=== PATIENT | male | born 1990 | race African-American/Black ===

== ENCOUNTER 2016-07-17 10:37 | Emergency (ER) | payer OTHER ==
[~2016-07-17] VITALS: Ht 182.9 cm; Wt 105.2 kg
[2016-07-17 11:55] LABS: Basophils # (auto) 0 uL; Basophils % (auto) 0.8 % (0.0-2.0); DEFINITIVE VIEW TRANSMISSION; Eosinophils # (auto) 0.4 uL; Eosinophils % (auto) 7.4 % (0.0-7.0); Hematocrit 49.7 % (41.0-53.0); Hemoglobin 15.6 g/dL (13.5-17.5); Lymphocytes # (auto) 2.1 uL; Lymphocytes % (auto) 44.1 % (10.0-50.0); Mean Corpuscular Hemoglobin 25.1 pg (28.0-32.0); Mean Corpuscular Hgb Conc. 31.4 g/dL (32.0-36.0); Mean Corpuscular Volume 79.9 fL (80.0-100.0); Mean Platelet Volume 9.7 fL (7.4-10.4); Monocytes # (auto) 0.5 uL; Monocytes % (auto) 10.4 % (0.0-12.0); Neutrophils # (auto) 1.8 uL; Neutrophils % (auto) 37.3 % (37.0-80.0); Platelet Count (auto) 289 10^3/uL (140-450); Red Cell Distribution Width 14.4 % (11.6-16.0); White Blood Cell 4.8 10^3/uL (4.4-10.8)
[2016-07-17 12:05] LABS: Albumin 3.2 g/dL (3.4-5.0); BUN/Creatinine Ratio 12.3; Bilirubin, Total 0.5 mg/dL (0.2-1.0); Calcium 8.6 mg/dL (8.5-10.1); Potassium 3.9 mmol/L (3.5-5.1); Total Protein 6.2 g/dL (6.4-8.2)
[2016-07-17 17:30] VITALS: BP 122/76
[2016-07-17] MEDS ORDERED: ONDANSETRON HCL 4 MG/2 ML VIAL IM ONE (17:45)
== END 2016-07-17 17:53 | disposition home or self-care (01) ==
LOC: ER 10:53
DX: K52.9 Noninfective gastroenteritis and colitis, unspecified (principal); T62.91XA Toxic effect of unspecified noxious substance eaten as food, accidental (unintentional), initial encounter; Y93.89 Activity, other specified; Y99.9 Unspecified external cause status; Y92.89 Other specified places as the place of occurrence of the external cause
CPT/HCPCS: 36415; 80053; 85025; 96372; 99284; J2405